=== PATIENT | male | born 1955 | race Caucasian/White ===

== ENCOUNTER → 2016-07-01 | Outpatient (CLI) | payer MEDICARE ==
[~2016-07-01] MED LIST: ATEN25TA PO; ATOR20TA9 PO; DOCU100T6 PO; LISI1TAB3 PO; OMNIPAQUE 350 MG/ML, 75ML BOTTLE ONE; ONDA4TAB7 PO; OXYC5CAP4 PO; WARF5TAB7 PO
== END | disposition home or self-care (01) ==
LOC: CFH 11:58
PROVIDERS: ATTEND Internal Medicine Hematology & Oncology
DX: C09.9 Malignant neoplasm of tonsil, unspecified (principal); I65.29 Occlusion and stenosis of unspecified carotid artery; M79.9 Soft tissue disorder, unspecified
CPT/HCPCS: 70487; Q9967

== ENCOUNTER → 2017-11-30 | Outpatient (CLI) | payer MEDICARE, OTHER ==
[~2017-11-30] MED LIST changes: +OMNIPAQUE 350 MG/ML, 150 ML BOTTLE ONE; -OMNIPAQUE 350 MG/ML, 75ML BOTTLE ONE; +OXYC5CAP2 PO; -OXYC5CAP4 PO; +WARF-36 PO; -WARF5TAB7 PO
== END | disposition home or self-care (01) ==
LOC: CFH 10:43
PROVIDERS: ATTEND Internal Medicine Hematology & Oncology
DX: I70.0 Atherosclerosis of aorta (principal); N26.1 Atrophy of kidney (terminal); N28.1 Cyst of kidney, acquired; N32.89 Other specified disorders of bladder; N40.0 Benign prostatic hyperplasia without lower urinary tract symptoms; C09.9 Malignant neoplasm of tonsil, unspecified
CPT/HCPCS: 70491; 71260; 74177; Q9967

== ENCOUNTER 2018-02-18 09:49 | Inpatient (IN) | payer MEDICARE, OTHER ==
[~2018-02-18] VITALS: Ht 167.6 cm; Wt 78.1 kg
[~2018-02-18 09:49] MED LIST changes: +ATOR20TA37 PO; -ATOR20TA9 PO; -OMNIPAQUE 350 MG/ML, 150 ML BOTTLE ONE
--- NOTE | 2018-02-18 10:10 | NUR ---
ASSUMING PT CARE AT THIS TIME. 62 Y/O MALE PRESENTS TO ED WITH C/O FEVER "[facility] TOLD ME TO COME HERE. I'VE HAD A FEVER OFF AND ON ALL WEEK. I'M DOING SOME IMMUNE THERAPY. MY LAST TREATMENT WAS TWO WEEKS AGO TODAY. IN TWO WEEKS IS MY NEXT TREATMENT. THIS IS MY SECOND TIME. " NO ACUTE DISTRESS NOTED. PT PLACED ON CONT PULSE OX,NIBP.
--- NOTE | 2018-02-18 10:22 | NUR ---
PT GIVEN URINAL
--- NOTE | 2018-02-18 10:53 | NUR ---
PT RESTING ON GURNEY. NO ACUTE DISTRESS NOTED. LAB BEDSIDE. NO NEEDS REQUESTED AT THIS TIME.
[2018-02-18 11:10] LABS: BASOPHILS # (AUTO) 0.02 x10^3/uL (0-0.1); BASOPHILS % (AUTO) 0 % (0-1); EOSINOPHILS # (AUTO) 0.07 x10^3/uL (0-0.4); EOSINOPHILS % (AUTO) 1 % (1-7); LYMPHOCYTES # (AUTO) 0.78 x10^3/uL (1-3.4); LYMPHOCYTES % (AUTO) 6 % (22-44); MD NO; MEAN CORPUSCULAR HEMOGLOBIN 30.3 pg (27.5-34.5); MEAN CORPUSCULAR HGB CONC 33.8 g/dL (33.2-36.2); MEAN CORPUSCULAR VOLUME 89.6 fL (81-97); MEAN PLATELET VOLUME 7.2 fL (7.4-10.4); MONOCYTES # (AUTO) 0.91 x10^3/uL (0.2-0.8); MONOCYTES % (AUTO) 7 % (2-9); NEUTROPHILS # (AUTO) 12.08 x10^3/uL (1.8-6.8); NEUTROPHILS % (AUTO) 87 % (42-75); PLATELET COUNT 356 x10^3/uL (130-400); RED BLOOD COUNT 5.03 x10^6/uL (4.38-5.82); RED CELL DISTRIBUTION WIDTH 14.9 % (9.4-14.8)
[2018-02-18 11:19] LABS: ANION GAP 7 mmol/L (5-15); CALCIUM 8.7 mg/dL (8.5-10.1); CHLORIDE 97 mmol/L (98-107); CREATININE 1.49 mg/dL (0.7-1.3)
[2018-02-18 11:23] LABS: CULTURE INDICATED? YES; MICROSCOPIC INDICATED
[2018-02-18 11:48] LABS: RAPID INFLUENZA A Negative (Negative); RAPID INFLUENZA B Negative (Negative)
--- NOTE | 2018-02-18 11:54 | NUR ---
PT RESTING ON GURNEY. NO ACUTE DISTRESS NOTED. NO NEEDS REQUESTED AT THIS TIME. EDMD BEDSIDE. PT VERBALIZES UNDERSTANDING REGARDING POC
[2018-02-18] MEDS ORDERED: CEFTRIAXONE PMX 1GM/50ML 50 ML IV ONE (12:00)
--- NOTE | 2018-02-18 12:11 | NUR ---
PORT ACCESSED. 20G 0.75. PT TOLERATED WITH NO COMPLICATIONS.
[2018-02-18] MEDS ORDERED: CEFTRIAXONE PMX 1GM/50ML 50 ML ONE (12:47)
--- NOTE | 2018-02-18 12:53 | NUR ---
TASK RN: PT RESTING ON CARO. MARCUS. VSS. IV ANTX INITIATED AFTER BC X 2 HAVE BEEN DRAWN.
[2018-02-18] MEDS ORDERED: DEXTROSE 50%, 50ML SYRINGE IVPush PRN (13:00)
[2018-02-18] MEDS ORDERED: DOCUSATE 100 MG CAPSULE PO PRN (13:00)
[2018-02-18] MEDS ORDERED: BISACODYL 10 MG SUPP PR PRN (13:00)
[2018-02-18] MEDS ORDERED: POLYETHYLENE GLYCOL 17 GM PACKET PO PRN (13:00)
[2018-02-18] MEDS ORDERED: DEXTROSE 4 GM TAB.CHEW PO PRN (13:00)
[2018-02-18] MEDS ORDERED: GLUCAGON 1 MG IM PRN (13:00)
[2018-02-18] MEDS ORDERED: hydrALAzine 20 MG/ML, 1ML IVPush PRN (13:00)
[2018-02-18] MEDS ORDERED: CEFTRIAXONE PMX 1GM/50ML 50 ML IV SCH (13:00)
[2018-02-18 13:02] LABS: INTERNATIONAL NORMALIZED RATIO 3.78 (0.93-1.1); PROTHROMBIN TIME 38.1 Seconds (9.6-11.5)
--- NOTE | 2018-02-18 13:06 | NUR ---
TASK RN: REPORT GIVEN TO TRESA, RECEIVING RN. ALL QUESTIONS ANSWERED. AWAITING PT TRANSPORT.
[2018-02-18] MEDS ORDERED: GLUCAGON 1 MG IVPush STA (13:26)
[2018-02-18] MEDS ORDERED: GLUCAGON 1 MG ONE (13:32)
--- NOTE | 2018-02-18 13:53 | NUR ---
PT STATES "THAT HELPED. IT'S NOT THERE ANYMORE. I'M JUST GONNA EAT SOFT FOODS." NO ACUTE DISTRESS NOTED. PT EATING SOFT FRUITS NOW WITH NO COMPLICATIONS.
--- NOTE | 2018-02-18 14:00 | NUR ---
PT BEING TRANSFERRED TO FLOOR. PT LEFT WITH ALL PERSONAL BELONGINGS. RECIEVING RN, TRESA, AWARE OF GLUCAGON.
[2018-02-18 14:13] LABS: HEMOGLOBIN A1C 6.4 % (4.2-6.3)
[2018-02-18 14:14] VITALS: BP 127/74
[2018-02-18] MEDS: NICOTINE 7 MG/24 HR PATCH.TD24 TD SCH (14:28)
[2018-02-18] MEDS: SODIUM CHLORIDE 0.9% 1,000 ML IV SCH ×2 (14:28→22:58)
[2018-02-18] MEDS: ACETAMINOPHEN 325 MG TABLET PO PRN ×2 (15:21→22:36)
[2018-02-18] MEDS: INSULIN LISPRO 100 UNITS/ML, PEN SQ-INSULIN SCH ×2 (17:53→19:50)
[2018-02-18 19:25] VITALS: BP 133/66
[2018-02-18] MEDS: SODIUM CHLORIDE FLUSH 10ML SYR IVF SCH (19:50)
[2018-02-18] MEDS: ATORVASTATIN 20 MG TABLET PO SCH (20:19)
[2018-02-18] MEDS ORDERED: DIPHENHYDRAMINE 50 MG CAPSULE PO ONE (23:00)
[2018-02-19 02:13] VITALS: BP 127/77
[2018-02-19] MEDS: ACETAMINOPHEN 325 MG TABLET PO PRN ×3 (04:10→17:18)
[2018-02-19] MEDS ORDERED: LEVO25TA2 PO (04:17)
[2018-02-19 06:15] LABS: BASOPHILS # (AUTO) 0.03 x10^3/uL (0-0.1); BASOPHILS % (AUTO) 0 % (0-1); EOSINOPHILS # (AUTO) 0.11 x10^3/uL (0-0.4); EOSINOPHILS % (AUTO) 1 % (1-7); LYMPHOCYTES # (AUTO) 0.62 x10^3/uL (1-3.4); LYMPHOCYTES % (AUTO) 4 % (22-44); MD NO; MEAN CORPUSCULAR HEMOGLOBIN 30.4 pg (27.5-34.5); MEAN CORPUSCULAR HGB CONC 34.2 g/dL (33.2-36.2); MEAN CORPUSCULAR VOLUME 88.9 fL (81-97); MEAN PLATELET VOLUME 7.2 fL (7.4-10.4); MONOCYTES # (AUTO) 0.89 x10^3/uL (0.2-0.8); MONOCYTES % (AUTO) 6 % (2-9); NEUTROPHILS # (AUTO) 12.82 x10^3/uL (1.8-6.8); NEUTROPHILS % (AUTO) 89 % (42-75); PLATELET COUNT 331 x10^3/uL (130-400); RED BLOOD COUNT 4.43 x10^6/uL (4.38-5.82); RED CELL DISTRIBUTION WIDTH 15.1 % (9.4-14.8)
[2018-02-19 06:24] LABS: CHLORIDE 105 mmol/L (98-107)
[2018-02-19 06:41] LABS: ANION GAP 9 mmol/L (5-15); CALCIUM 8.3 mg/dL (8.5-10.1); CREATININE 1.36 mg/dL (0.7-1.3)
[2018-02-19 06:57] VITALS: BP 125/68
[2018-02-19] MEDS: INSULIN LISPRO 100 UNITS/ML, PEN SQ-INSULIN SCH ×5 (07:29→20:28)
[2018-02-19] MEDS: SODIUM CHLORIDE FLUSH 10ML SYR IVF SCH ×2 (09:00→20:15)
[2018-02-19] MEDS: SODIUM CHLORIDE 0.9% 1,000 ML IV SCH ×2 (09:23→19:07)
[2018-02-19] MEDS: ATENOLOL 25 MG TABLET PO SCH (09:33)
[2018-02-19] MEDS: NICOTINE 7 MG/24 HR PATCH.TD24 TD SCH (13:00)
[2018-02-19] MEDS ORDERED: CEFTRIAXONE PMX 1GM/50ML 50 ML IV SCH (14:00)
[2018-02-19 15:00] VITALS: BP 151/72
[2018-02-19 17:11] LABS: INTERNATIONAL NORMALIZED RATIO 2.58 (0.93-1.1); PROTHROMBIN TIME 26.4 Seconds (9.6-11.5)
[2018-02-19] MEDS ORDERED: WARFARIN 3 MG TABLET PO-COUM ONE ×2 (18:30→19:00)
[2018-02-19] MEDS ORDERED: WARFARIN 2.5 MG TABLET PO-COUM ONE (19:00)
[2018-02-19 19:17] VITALS: BP 136/72
[2018-02-19] MEDS: ATORVASTATIN 20 MG TABLET PO SCH (20:19)
[2018-02-20 02:14] VITALS: BP 133/72
[2018-02-20] MEDS: ACETAMINOPHEN 325 MG TABLET PO PRN ×3 (02:46→22:47)
[2018-02-20] MEDS: SODIUM CHLORIDE 0.9% 1,000 ML IV SCH (04:10)
[2018-02-20 04:42] LABS: BASOPHILS # (AUTO) 0.02 x10^3/uL (0-0.1); BASOPHILS % (AUTO) 0 % (0-1); EOSINOPHILS # (AUTO) 0.28 x10^3/uL (0-0.4); EOSINOPHILS % (AUTO) 2 % (1-7); LYMPHOCYTES # (AUTO) 0.63 x10^3/uL (1-3.4); LYMPHOCYTES % (AUTO) 5 % (22-44); MD NO; MEAN CORPUSCULAR HEMOGLOBIN 30.6 pg (27.5-34.5); MEAN CORPUSCULAR HGB CONC 34.3 g/dL (33.2-36.2); MEAN CORPUSCULAR VOLUME 89.3 fL (81-97); MONOCYTES # (AUTO) 0.67 x10^3/uL (0.2-0.8); MONOCYTES % (AUTO) 6 % (2-9); NEUTROPHILS # (AUTO) 10.05 x10^3/uL (1.8-6.8); NEUTROPHILS % (AUTO) 86 % (42-75); PLATELET COUNT 343 x10^3/uL (130-400); RED CELL DISTRIBUTION WIDTH 15.2 % (9.4-14.8)
[2018-02-20 04:43] LABS: HCT (SEDRATE) 37.5 % (39.2-51.8)
[2018-02-20 04:46] LABS: INTERNATIONAL NORMALIZED RATIO 2.07 (0.93-1.1); PROTHROMBIN TIME 21.3 Seconds (9.6-11.5)
[2018-02-20 04:47] LABS: ANION GAP 8 mmol/L (5-15); CALCIUM 8.4 mg/dL (8.5-10.1); CHLORIDE 109 mmol/L (98-107)
[2018-02-20] MEDS: LEVOTHYROXINE 25 MCG TABLET PO SCH (06:19)
[2018-02-20 06:46] VITALS: BP 139/73
[2018-02-20] MEDS: INSULIN LISPRO 100 UNITS/ML, PEN SQ-INSULIN SCH ×4 (07:00→20:40)
[2018-02-20] MEDS: SODIUM CHLORIDE FLUSH 10ML SYR IVF SCH ×2 (08:22→20:46)
[2018-02-20] MEDS: ATENOLOL 25 MG TABLET PO SCH (08:22)
[2018-02-20] MEDS: NICOTINE 7 MG/24 HR PATCH.TD24 TD SCH (13:00)
[2018-02-20] MEDS ORDERED: LEVOFLOXACIN/PMX 750MG/150ML 150 ML IV SCH (14:00)
[2018-02-20 14:19] VITALS: BP 150/74
[2018-02-20 15:07] LABS: MICROSCOPIC INDICATED
[2018-02-20] MEDS ORDERED: WARFARIN 2.5 MG TABLET PO-COUM ONE (18:00)
[2018-02-20 19:30] VITALS: BP 155/74
[2018-02-20] MEDS: ATORVASTATIN 20 MG TABLET PO SCH (20:45)
[2018-02-21 00:40] VITALS: BP 150/77
[2018-02-21] MEDS: LEVOTHYROXINE 25 MCG TABLET PO SCH (05:01)
[2018-02-21 05:16] LABS: BASOPHILS % (AUTO) 1 % (0-1); EOSINOPHILS # (AUTO) 0.49 x10^3/uL (0-0.4); EOSINOPHILS % (AUTO) 5 % (1-7); LYMPHOCYTES # (AUTO) 0.88 x10^3/uL (1-3.4); LYMPHOCYTES % (AUTO) 8 % (22-44); MD NO; MEAN CORPUSCULAR HEMOGLOBIN 30.1 pg (27.5-34.5); MEAN CORPUSCULAR HGB CONC 33.6 g/dL (33.2-36.2); MEAN CORPUSCULAR VOLUME 89.6 fL (81-97); MEAN PLATELET VOLUME 7.1 fL (7.4-10.4); MONOCYTES # (AUTO) 0.65 x10^3/uL (0.2-0.8); MONOCYTES % (AUTO) 6 % (2-9); NEUTROPHILS # (AUTO) 8.65 x10^3/uL (1.8-6.8); NEUTROPHILS % (AUTO) 80 % (42-75); PLATELET COUNT 353 x10^3/uL (130-400); RED BLOOD COUNT 4.28 x10^6/uL (4.38-5.82); RED CELL DISTRIBUTION WIDTH 14.8 % (9.4-14.8)
[2018-02-21 05:25] LABS: INTERNATIONAL NORMALIZED RATIO 2.21 (0.93-1.1); PROTHROMBIN TIME 22.7 Seconds (9.6-11.5)
[2018-02-21 05:28] LABS: ANION GAP 9 mmol/L (5-15); CALCIUM 8.7 mg/dL (8.5-10.1); CHLORIDE 107 mmol/L (98-107); CREATININE 0.97 mg/dL (0.7-1.3)
[2018-02-21 07:09] VITALS: BP 165/73
[2018-02-21] MEDS: INSULIN LISPRO 100 UNITS/ML, PEN SQ-INSULIN SCH ×2 (07:28→11:00)
[2018-02-21] MEDS: ATENOLOL 25 MG TABLET PO SCH (07:58)
[2018-02-21] MEDS: SODIUM CHLORIDE FLUSH 10ML SYR IVF SCH (07:58)
[2018-02-21] MEDS ORDERED: LEVO750T26 PO (11:40)
[2018-02-21 12:45] VITALS: BP 143/73
[2018-02-21] MEDS ORDERED: WARFARIN 2.5 MG TABLET PO-COUM ONE (18:00)
== END 2018-02-21 14:05 | disposition home or self-care (01) | DRG 871 ==
LOC: ED 11:58 → EDIP 12:26 → 3NW 14:02 → DCLOUNGE 02-21 14:04
PROVIDERS: ADMIT Hospitalist; ATTEND Hospitalist
DX: A41.9 Sepsis, unspecified organism (principal); N17.0 Acute kidney failure with tubular necrosis; E87.1 Hypo-osmolality and hyponatremia; N10 Acute pyelonephritis; C78.89 Secondary malignant neoplasm of other digestive organs; F17.210 Nicotine dependence, cigarettes, uncomplicated; E03.9 Hypothyroidism, unspecified; C09.9 Malignant neoplasm of tonsil, unspecified; E11.51 Type 2 diabetes mellitus with diabetic peripheral angiopathy without gangrene; B96.89 Other specified bacterial agents as the cause of diseases classified elsewhere; I11.0 Hypertensive heart disease with heart failure; I50.9 Heart failure, unspecified; N30.90 Cystitis, unspecified without hematuria; Z80.7 Family history of other malignant neoplasms of lymphoid, hematopoietic and related tissues; Z86.718 Personal history of other venous thrombosis and embolism; Z89.512 Acquired absence of left leg below knee; Z88.6 Allergy status to analgesic agent; Z90.49 Acquired absence of other specified parts of digestive tract; Z92.21 Personal history of antineoplastic chemotherapy
CPT/HCPCS: 36415; 71045; 76700; 80048; 81001; 82040; 82962; 83036; 83605; 84145; 84439; 84443; 85025; 85610; 85651; 86140; 87040; 87077; 87086; 87186; 87400; 93005; 96365; 96375; G0378; J0696; J1956; J1610; J1815; J7030

== ENCOUNTER 2018-03-20 18:16 | Emergency (ER) | payer MEDICARE ==
[~2018-03-20] VITALS: Ht 167.6 cm; Wt 75.0 kg
[~2018-03-20 18:16] MED LIST changes: +LEVO25TA2 PO; +LEVO750T26 PO
--- NOTE | 2018-03-20 19:10 | NUR ---
YARDING ENGINEER: PT. TO ROOM FROM LOBBY; URINE SAMPLE REQUESTED AND URINAL PROVIDED.
--- NOTE | 2018-03-20 19:16 | NUR ---
PT IN GOWN IN CARO; MARCUS. PT VOIDING INTO URINAL. WILL RETURN TO PT ROOM FOR BLADDER SCAN SHORTLY.
[2018-03-20 19:51] LABS: BASOPHILS # (AUTO) 0.02 x10^3/uL (0-0.1); BASOPHILS % (AUTO) 0 % (0-1); EOSINOPHILS # (AUTO) 0.32 x10^3/uL (0-0.4); EOSINOPHILS % (AUTO) 3 % (1-7); LYMPHOCYTES # (AUTO) 0.98 x10^3/uL (1-3.4); LYMPHOCYTES % (AUTO) 8 % (22-44); MD NO; MEAN CORPUSCULAR HEMOGLOBIN 30.2 pg (27.5-34.5); MEAN CORPUSCULAR HGB CONC 33.7 g/dL (33.2-36.2); MEAN CORPUSCULAR VOLUME 89.4 fL (81-97); MEAN PLATELET VOLUME 7.2 fL (7.4-10.4); MONOCYTES # (AUTO) 0.69 x10^3/uL (0.2-0.8); MONOCYTES % (AUTO) 6 % (2-9); NEUTROPHILS # (AUTO) 9.72 x10^3/uL (1.8-6.8); NEUTROPHILS % (AUTO) 83 % (42-75); PLATELET COUNT 267 x10^3/uL (130-400); RED BLOOD COUNT 5.14 x10^6/uL (4.38-5.82)
[2018-03-20 19:52] LABS: CULTURE INDICATED? YES; MICROSCOPIC INDICATED
[2018-03-20 20:01] LABS: ALANINE AMINOTRANSFERASE 23 U/L (12-78); ALBUMIN 3.4 g/dL (3.4-5.0); ANION GAP 8 mmol/L (5-15); CALCIUM 8.8 mg/dL (8.5-10.1); CHLORIDE 103 mmol/L (98-107); CREATININE 1.18 mg/dL (0.7-1.3); INTERNATIONAL NORMALIZED RATIO 2.94 (0.93-1.1); PROTHROMBIN TIME 29.9 Seconds (9.6-11.5)
[2018-03-20 20:03] LABS: ALKALINE PHOSPHATASE 127 U/L (45-117); BILIRUBIN,TOTAL 0.2 mg/dL (0.2-1.0); TOTAL PROTEIN 7.7 g/dL (6.4-8.2)
--- NOTE | 2018-03-20 20:14 | NUR ---
BS performed at BS. 4 scans showed highest volume of 84 ML of urine.
[2018-03-20] MEDS ORDERED: CEFTRIAXONE 1,000 MG IM ONE (20:30)
[2018-03-20] MEDS ORDERED: CEFTRIAXONE 1,000 MG ONE (20:37)
[2018-03-20] MEDS ORDERED: LIDOCAINE-MPF 1%, 5ML ONE (20:37)
--- NOTE | 2018-03-20 20:57 | NUR ---
pt medicated per mar.
--- NOTE | 2018-03-20 21:12 | NUR ---
pt d/c with d/c summary and scripts. all questions answered. pt wheeled to registration desk in wheelchair for d/c home with friend. pt denies any other needs pertaning to this visit.
[2018-03-20 21:13] VITALS: BP 152/89
== END 2018-03-20 21:15 | disposition home or self-care (01) ==
LOC: ED 19:30
DX: N30.01 Acute cystitis with hematuria (principal); I11.0 Hypertensive heart disease with heart failure; I50.9 Heart failure, unspecified
CPT/HCPCS: 36415; 80053; 81001; 83605; 85025; 85610; 85730; 87040; 87086; 96372; 99283; J0696

== ENCOUNTER → 2018-03-21 | Outpatient (CLI) | payer MEDICARE ==
[~2018-03-21] MED LIST changes: +OMNIPAQUE 350 MG/ML, 150 ML BOTTLE ONE
== END | disposition home or self-care (01) ==
LOC: RAD 12:37
PROVIDERS: ATTEND Internal Medicine Hematology & Oncology
DX: J43.8 Other emphysema (principal); R59.9 Enlarged lymph nodes, unspecified; K46.9 Unspecified abdominal hernia without obstruction or gangrene; I70.0 Atherosclerosis of aorta; N28.1 Cyst of kidney, acquired; N26.9 Renal sclerosis, unspecified; I74.5 Embolism and thrombosis of iliac artery; I74.09 Other arterial embolism and thrombosis of abdominal aorta; N32.89 Other specified disorders of bladder; M85.88 Other specified disorders of bone density and structure, other site; Z90.49 Acquired absence of other specified parts of digestive tract; Z85.89 Personal history of malignant neoplasm of other organs and systems
CPT/HCPCS: 70491; 71260; 74177; J1642; Q9967

== ENCOUNTER → 2018-05-30 | Outpatient (CLI) | payer MEDICARE ==
[~2018-05-30] MED LIST changes: -OMNIPAQUE 350 MG/ML, 150 ML BOTTLE ONE; +OMNIPAQUE 350 MG/ML, 75ML BOTTLE ONE
== END | disposition home or self-care (01) ==
LOC: CFH 10:02
PROVIDERS: ATTEND Internal Medicine Hematology & Oncology
DX: J43.8 Other emphysema (principal); R91.8 Other nonspecific abnormal finding of lung field; N26.1 Atrophy of kidney (terminal); C09.9 Malignant neoplasm of tonsil, unspecified; Z87.891 Personal history of nicotine dependence; Z95.1 Presence of aortocoronary bypass graft
CPT/HCPCS: 71260; Q9967

== ENCOUNTER 2018-07-22 11:27 | Outpatient (CLI) | payer MEDICARE ==
[~2018-07-22 11:27] MED LIST changes: -OMNIPAQUE 350 MG/ML, 75ML BOTTLE ONE
[2018-07-22] MEDS ORDERED: OMNIPAQUE 350 MG/ML, 150 ML BOTTLE ONE (13:04)
== END 2018-07-22 23:59 | disposition home or self-care (01) ==
LOC: RAD 11:27
PROVIDERS: ATTEND Internal Medicine Hematology & Oncology
DX: C09.9 Malignant neoplasm of tonsil, unspecified (principal); K22.2 Esophageal obstruction; R91.8 Other nonspecific abnormal finding of lung field; K22.8 Other specified diseases of esophagus; E11.9 Type 2 diabetes mellitus without complications; Z91.041 Radiographic dye allergy status
CPT/HCPCS: 70491; 71260; Q9967

== ENCOUNTER 2018-07-29 07:20 | Outpatient (CLI) | payer MEDICARE | END 2018-07-29 23:59 | disposition home or self-care (01) | LOC: ROC 07:20 | PROVIDERS: ATTEND Radiology Radiation Oncology | DX: C09.9 Malignant neoplasm of tonsil, unspecified (principal); Z79.899 Other long term (current) drug therapy | CPT/HCPCS: G0463 ==

== ENCOUNTER 2018-09-29 10:56 | Outpatient (CLI) | payer MEDICARE, OTHER | END 2018-09-29 23:59 | disposition home or self-care (01) | LOC: CFH 10:56 | PROVIDERS: ATTEND Internal Medicine Hematology & Oncology | DX: J44.9 Chronic obstructive pulmonary disease, unspecified (principal); J92.9 Pleural plaque without asbestos; C09.9 Malignant neoplasm of tonsil, unspecified | CPT/HCPCS: 71260; Q9967 ==

== ENCOUNTER 2020-01-03 23:12 | Inpatient (IN) | payer MEDICARE ==
[~2020-01-03] VITALS: Ht 167.6 cm; Wt 91.5 kg
[~2020-01-03 23:12] MED LIST changes: +LISI1TAB23 PO; -LISI1TAB3 PO
--- NOTE | 2020-01-03 23:20 | NUR ---
SENIOR SQL DEVELOPER: EKG DONE IN TRIAGE AT THIS TIME.
--- NOTE | 2020-01-04 00:26 | NUR ---
CLASSIFIED COPY CONTROL CLERK: PT. TO ROOM FROM LOBBY AT THIS TIME.
--- NOTE | 2020-01-04 00:36 | NUR ---
Patient comes in with complaints of chest pain that radiate to back. Stated that is started a month ago and is intermitten and today its more constant today. Patient placed on kalsominer. Provider at bedside.
[2020-01-04] MEDS ORDERED: SODIUM CHLORIDE FLUSH 10ML SYR IVF ONE (01:00)
[2020-01-04] MEDS ORDERED: HYDROmorphone 1 MG/ML, 1ML INJ ONE ×2 (01:09→02:32)
[2020-01-04 01:10] LABS: BASOPHILS % (AUTO) 2 % (0-1); EOSINOPHILS % (AUTO) 2 % (1-7); LYMPHOCYTES % (AUTO) 8 % (22-44); MEAN CORPUSCULAR HEMOGLOBIN 31.1 pg (27.5-34.5); MEAN CORPUSCULAR HGB CONC 33.8 g/dL (33.2-36.2); MEAN PLATELET VOLUME 6.2 fL (7.4-10.4); MONOCYTES % (AUTO) 7 % (2-9); NEUTROPHILS % (AUTO) 82 % (42-75); PLATELET COUNT 484 x10^3/uL (130-400); RED BLOOD COUNT 4.66 x10^6/uL (4.38-5.82); RED CELL DISTRIBUTION WIDTH 16.8 % (9.4-14.8)
[2020-01-04 01:11] LABS: MD NO
[2020-01-04] MEDS ORDERED: HYDROmorphone 1 MG/ML, 1ML INJ IV ONE ×2 (01:30→03:00)
[2020-01-04 01:33] LABS: ALANINE AMINOTRANSFERASE 20 U/L (12-78); ALBUMIN 3.1 g/dL (3.4-5.0); ALKALINE PHOSPHATASE 140 U/L (45-117); ANION GAP 7 mmol/L (5-15); BILIRUBIN,TOTAL 0.4 mg/dL (0.2-1.0); CHLORIDE 100 mmol/L (98-107); CREATININE 1.25 mg/dL (0.7-1.3); TOTAL PROTEIN 7.7 g/dL (6.4-8.2)
[2020-01-04 01:34] LABS: TROPONIN I < 0.015 ng/mL (0.000-0.045)
[2020-01-04] MEDS ORDERED: OMNIPAQUE 350 MG/ML, 75ML BOTTLE ONE (01:54)
--- NOTE | 2020-01-04 02:40 | NUR ---
Patient con't to complain of pain to left chest. Medicated per APR. at bedside
--- NOTE | 2020-01-04 03:37 | NUR ---
Patient provided with water at bedside.
[2020-01-04] MEDS ORDERED: ACETAMINOPHEN 325 MG TABLET PO PRN (04:00)
[2020-01-04] MEDS ORDERED: ONDANSETRON 2MG/ML, 2ML IVPush PRN (04:00)
[2020-01-04] MEDS ORDERED: LABETALOL 5MG/ML, 20ML IVPush PRN (04:00)
[2020-01-04 04:06] VITALS: BP 132/74
[2020-01-04 04:45] LABS: INTERNATIONAL NORMALIZED RATIO 0.96 (0.93-1.1); PROTHROMBIN TIME 10.2 Seconds (9.6-11.5)
[2020-01-04 04:58] LABS: FREE T4 (FREE THYROXINE) 0.88 ng/dL (0.76-1.46)
[2020-01-04] MEDS: LEVOTHYROXINE 25 MCG TABLET PO SCH (05:28)
[2020-01-04 06:46] VITALS: BP 129/69
[2020-01-04] MEDS: HYDROmorphone 2 MG/ML, 1ML IVPush PRN ×3 (06:55→18:41)
[2020-01-04] MEDS ORDERED: OMNIPAQUE 350 MG/ML, 100ML BOTTLE ONE (07:28)
[2020-01-04] MEDS ORDERED: GADOTERATE 10 MMOL/20 ML VIAL ONE (09:23)
[2020-01-04] MEDS: SENNA/DOCUSATE TABLET PO SCH (10:15)
[2020-01-04] MEDS: ATENOLOL 25 MG TABLET PO SCH (10:22)
[2020-01-04 13:03] VITALS: BP 150/73
[2020-01-04] MEDS: OXYcodone IR 5MG TABLET PO PRN ×2 (14:03→22:23)
[2020-01-04] MEDS: ENOXAPARIN 40 MG/0.4 ML SQ SCH (15:42)
[2020-01-04] MEDS ORDERED: WARFARIN 7.5 MG TABLET PO-COUM ONE (18:00)
[2020-01-04 19:50] VITALS: BP 127/74
[2020-01-04] MEDS: ATORVASTATIN 10 MG TABLET PO SCH (20:30)
[2020-01-04] MEDS: GABAPENTIN 300 MG CAPSULE PO SCH (22:20)
[2020-01-05 03:51] VITALS: BP 165/73
[2020-01-05] MEDS: LEVOTHYROXINE 25 MCG TABLET PO SCH (04:45)
[2020-01-05] MEDS: OXYcodone IR 5MG TABLET PO PRN ×4 (04:46→21:26)
[2020-01-05 05:03] LABS: ANION GAP 8 mmol/L (5-15); BASOPHILS % (AUTO) 1 % (0-1); CALCIUM 9.4 mg/dL (8.5-10.1); CHLORIDE 96 mmol/L (98-107); CREATININE 1.17 mg/dL (0.7-1.3); EOSINOPHILS % (AUTO) 3 % (1-7); LYMPHOCYTES % (AUTO) 9 % (22-44); MEAN CORPUSCULAR HEMOGLOBIN 31.6 pg (27.5-34.5); MEAN CORPUSCULAR HGB CONC 34.6 g/dL (33.2-36.2); MEAN PLATELET VOLUME 6.4 fL (7.4-10.4); MONOCYTES % (AUTO) 8 % (2-9); NEUTROPHILS % (AUTO) 79 % (42-75); PLATELET COUNT 427 x10^3/uL (130-400); RED BLOOD COUNT 4.27 x10^6/uL (4.38-5.82); RED CELL DISTRIBUTION WIDTH 16.4 % (9.4-14.8)
[2020-01-05 05:10] LABS: MD NO
[2020-01-05 07:36] VITALS: BP 156/73
[2020-01-05] MEDS: ATENOLOL 25 MG TABLET PO SCH (08:47)
[2020-01-05] MEDS: GABAPENTIN 300 MG CAPSULE PO SCH ×3 (08:47→20:44)
[2020-01-05] MEDS: SENNA/DOCUSATE TABLET PO SCH (08:47)
[2020-01-05 12:54] VITALS: BP 135/68
[2020-01-05] MEDS: ENOXAPARIN 40 MG/0.4 ML SQ SCH (17:22)
[2020-01-05 20:21] VITALS: BP 144/75
[2020-01-05] MEDS: ATORVASTATIN 10 MG TABLET PO SCH (20:45)
[2020-01-06 01:25] VITALS: BP 153/69
[2020-01-06] MEDS: OXYcodone IR 5MG TABLET PO PRN ×4 (02:08→20:48)
[2020-01-06] MEDS: LEVOTHYROXINE 25 MCG TABLET PO SCH (05:23)
[2020-01-06 05:46] LABS: ALBUMIN 2.6 g/dL (3.4-5.0); ANION GAP 6 mmol/L (5-15); CALCIUM 9.2 mg/dL (8.5-10.1); CHLORIDE 98 mmol/L (98-107); CREATININE 1.07 mg/dL (0.7-1.3)
[2020-01-06 07:46] VITALS: BP 165/77
[2020-01-06] MEDS: GABAPENTIN 300 MG CAPSULE PO SCH ×3 (08:04→20:48)
[2020-01-06] MEDS: SENNA/DOCUSATE TABLET PO SCH (08:05)
[2020-01-06] MEDS: ATENOLOL 25 MG TABLET PO SCH (08:05)
[2020-01-06 12:42] VITALS: BP 136/70
[2020-01-06] MEDS: ENOXAPARIN 40 MG/0.4 ML SQ SCH (15:25)
[2020-01-06 20:29] VITALS: BP 147/61
[2020-01-06] MEDS: ATORVASTATIN 10 MG TABLET PO SCH (20:48)
[2020-01-06] MEDS: SODIUM CHLORIDE 1 GM TABLET PO SCH (20:48)
[2020-01-07 00:37] VITALS: BP_SYST 157; BP_SYST 163; BP_DIAS 75; BP_DIAS 76
[2020-01-07] MEDS: OXYcodone IR 5MG TABLET PO PRN ×5 (01:22→21:07)
[2020-01-07 04:16] LABS: ANION GAP 6 mmol/L (5-15); CALCIUM 9.8 mg/dL (8.5-10.1); CHLORIDE 99 mmol/L (98-107); CREATININE 1.03 mg/dL (0.7-1.3)
[2020-01-07] MEDS: LEVOTHYROXINE 25 MCG TABLET PO SCH (06:20)
[2020-01-07 07:33] VITALS: BP 142/66
[2020-01-07] MEDS: ATENOLOL 25 MG TABLET PO SCH (08:10)
[2020-01-07] MEDS: GABAPENTIN 300 MG CAPSULE PO SCH ×3 (08:10→21:07)
[2020-01-07] MEDS: SENNA/DOCUSATE TABLET PO SCH (08:10)
[2020-01-07] MEDS: SODIUM CHLORIDE 1 GM TABLET PO SCH ×2 (08:11→21:06)
[2020-01-07 12:32] VITALS: BP 179/78
[2020-01-07] MEDS: ENOXAPARIN 40 MG/0.4 ML SQ SCH (15:29)
[2020-01-07 19:14] VITALS: BP 167/75
[2020-01-07] MEDS: ATORVASTATIN 10 MG TABLET PO SCH (21:07)
[2020-01-08 00:22] VITALS: BP 169/66
[2020-01-08] MEDS: OXYcodone IR 5MG TABLET PO PRN ×4 (02:15→15:51)
[2020-01-08] MEDS: LEVOTHYROXINE 25 MCG TABLET PO SCH (06:21)
[2020-01-08 07:08] VITALS: BP 159/65
[2020-01-08] MEDS: GABAPENTIN 300 MG CAPSULE PO SCH (08:27)
[2020-01-08] MEDS: ATENOLOL 25 MG TABLET PO SCH (08:27)
[2020-01-08] MEDS: SODIUM CHLORIDE 1 GM TABLET PO SCH (08:28)
[2020-01-08] MEDS: SENNA/DOCUSATE TABLET PO SCH (08:28)
[2020-01-08 13:08] VITALS: BP 132/68
[2020-01-08] MEDS ORDERED: GABA300C PO (14:15)
[2020-01-08] MEDS ORDERED: LEVO25TA2 PO (14:15)
[2020-01-08] MEDS ORDERED: Senna/Docusate PO (14:15)
[2020-01-08] MEDS ORDERED: ATEN25TA PO (14:15)
[2020-01-08] MEDS ORDERED: OXYC5TAB3 PO (14:17)
[2020-01-08] MEDS ORDERED: POLY17PO5 PO (14:19)
[2020-01-08] MEDS ORDERED: APIX2.5T PO (14:46)
[2020-01-08] MEDS: ENOXAPARIN 40 MG/0.4 ML SQ SCH (15:45)
== END 2020-01-08 16:16 | disposition home or self-care (01) | DRG 146 ==
LOC: ED 01-04 00:35 → EDIP 01-04 03:24 → 4NW 01-04 04:05 → DCLOUNGE 01-08 16:07
PROVIDERS: ADMIT Family Medicine; ATTEND Internal Medicine
DX: C09.9 Malignant neoplasm of tonsil, unspecified (principal); E43 Unspecified severe protein-calorie malnutrition; C15.9 Malignant neoplasm of esophagus, unspecified; G95.20 Unspecified cord compression; C78.7 Secondary malignant neoplasm of liver and intrahepatic bile duct; C79.51 Secondary malignant neoplasm of bone; C79.89 Secondary malignant neoplasm of other specified sites; E22.2 Syndrome of inappropriate secretion of antidiuretic hormone; D72.829 Elevated white blood cell count, unspecified; E03.9 Hypothyroidism, unspecified; E78.5 Hyperlipidemia, unspecified; F12.90 Cannabis use, unspecified, uncomplicated; F17.210 Nicotine dependence, cigarettes, uncomplicated; G89.3 Neoplasm related pain (acute) (chronic); I11.0 Hypertensive heart disease with heart failure; I50.9 Heart failure, unspecified; I73.9 Peripheral vascular disease, unspecified; J44.9 Chronic obstructive pulmonary disease, unspecified; K59.00 Constipation, unspecified; M48.04 Spinal stenosis, thoracic region; N28.9 Disorder of kidney and ureter, unspecified; R13.10 Dysphagia, unspecified; Z79.01 Long term (current) use of anticoagulants; Z80.0 Family history of malignant neoplasm of digestive organs; Z80.7 Family history of other malignant neoplasms of lymphoid, hematopoietic and related tissues; Z85.818 Personal history of malignant neoplasm of other sites of lip, oral cavity, and pharynx; Z89.612 Acquired absence of left leg above knee; Z91.14 Patient's other noncompliance with medication regimen; Z92.21 Personal history of antineoplastic chemotherapy; Z92.3 Personal history of irradiation; Z86.718 Personal history of other venous thrombosis and embolism; Z88.6 Allergy status to analgesic agent; Z68.32 Body mass index [BMI] 32.0-32.9, adult; F10.21 Alcohol dependence, in remission
CPT/HCPCS: 36415; 71045; 71275; 72156; 72157; 72158; 74177; 77295; 77300; 77334; 77387; 77412; 80048; 80053; 82040; 83735; 84439; 84443; 84484; 85025; 85610; 93005; 99285; G0378; J1170; J1650; Q9967; A9575